=== PATIENT | female | born 1950 | race Caucasian/White ===

== ENCOUNTER 2017-06-16 12:40 | Day surgery (SDC) | payer OTHER ==
[~2017-06-16] VITALS: Ht 165.1 cm; Wt 89.3 kg
[2017-06-16 13:53] VITALS: Ht 165.1 cm; Wt 89.3 kg
[2017-06-16] MEDS ORDERED: PROP20TA4 PO (14:01)
[2017-06-16] MEDS ORDERED: LISI40TA9 PO (14:01)
[2017-06-16] MEDS ORDERED: PROPOFOL 60 ML ONE (14:50)
[2017-06-16] MEDS ORDERED: LIDOCAINE 2% (SDV) 5 ML INJ ONE (14:50)
--- NOTE | 2017-06-16 15:15 | OPPN ---
Date/Time of Note Date/Time of Note DATE: 06/16/17 TIME: 15:13 Operative Report Preoperative Diagnosis Rectal bleeding Postoperative Diagnosis Internal hemorrhoids Operation/Procedure Performed Colonoscopy Provider: JAM SOLANO MD Anesthesia Type: MAC Estimated blood loss: none Transfusion Required: no Specimen: none Grafts/Implants: none Complications: no JAM SOLANO MD Jun 16, 2017 15:14
[2017-06-16 15:42] VITALS: BP 106/57; RESP 14
[2017-06-16 16:01] VITALS: BP 150/69; PULSE 84; RESP 20
--- NOTE | 2017-06-16 17:00 | GILP ---
DATE OF PROCEDURE: 06/16/2017 PROCEDURE PERFORMED: Colonoscopy. PREOPERATIVE DIAGNOSIS: Rectal bleeding. POSTOPERATIVE DIAGNOSES: 1. Colonoscopy all the way to the cecum. 2. Internal hemorrhoids. 3. No colon neoplasm was identified. INDICATIONS FOR PROCEDURE: Ms Sheela Qiu is a 66-year-old female patient who had rectal bleeding. She never had a screening colonoscopy. The procedure and possible complications were well explained to the patient. She understood and consented to the procedure. DESCRIPTION OF PROCEDURE: Under the influence of anesthesia, the colonoscope was carefully introduced in the rectum. Under direct vision, it was advanced all the way to the cecum. Findings, the patient had internal hemorrhoids. No colitis or neoplasm was identified. She tolerated the procedure very well. There was no complication from the procedure. At the end of procedure, she was awake with stable vital signs and she was discharged home in the care of her family. IMPRESSION: 1. Colonoscopy all the way to the cecum. 2. Internal hemorrhoids. 3. No colon neoplasm was identified. PLAN: 1. Anusol HC 2.5 percent cream at bedtime p.r.n. 2. Next screening colonoscopy in 10 years. Dictated By: MD VIRGIE Velázquez/elizabeth/jose maria /Document#: [id number]
== END 2017-06-16 18:04 | disposition home or self-care (01) ==
LOC: GIL 12:40
PROVIDERS: ATTEND Internal Medicine Gastroenterology
DX: K64.8 Other hemorrhoids (principal); I10 Essential (primary) hypertension; E66.9 Obesity, unspecified; Z68.32 Body mass index [BMI] 32.0-32.9, adult
CPT/HCPCS: 45378; Z7610